=== PATIENT | female | born 1935 | race Caucasian/White ===

== ENCOUNTER 2021-05-18 22:58 | Inpatient (IN) | payer OTHER ==
[2021-05-19 00:20] LABS: HEMATOCRIT 33.2 % (32.4-45.2); MCH 30.7 pg (25.7-33.7); MCHC 33.2 g/dl (32.0-36.0); MEAN CELL VOLUME 92.6 fl (80-96); MEAN PLT VOLUME 7.1 fl (7.5-11.1); PLATELET COUNT 660 10^3/uL (134-434); RBC 3.59 M/mm3 (3.60-5.2); RDW 14.7 % (11.6-15.6); WHITE BLOOD COUNT 9.6 K/mm3 (4.0-10.0)
[2021-05-19 00:45] LABS: CHLORIDE 104 mmol/L (98-107); SODIUM 139 mmol/L (136-145)
[2021-05-19 00:48] LABS: ALBUMIN 2.6 g/dl (3.4-5.0); ANION GAP 6 MMOL/L (8-16); BLOOD UREA NITROGEN 9.8 mg/dL (7-18); CO2 29 mmol/L (21-32); GLUCOSE,RANDOM 193 mg/dL (74-106)
[2021-05-19 00:51] LABS: CREATININE 0.6 mg/dL (0.55-1.3); SGOT/AST 32 U/L (15-37); SGPT/ALT 24 U/L (13-61)
[2021-05-19 00:53] LABS: BILIRUBIN,TOTAL 0.4 mg/dL (0.2-1); TOT PROT 7.4 g/dl (6.4-8.2)
[2021-05-19 00:54] LABS: ALK PHOS 74 U/L (45-117)
[2021-05-19 01:01] LABS: INR 1.18 (0.83-1.09); PROTHROMBIN TIME (PATIENT) 14.3 SEC (9.7-13.0)
[2021-05-19 01:04] LABS: ACTIVATED PTT 34.7 SECONDS (25.2-36.5)
[2021-05-19 02:41] LABS: ANISOCYTOSIS 1+; MACROCYTOSIS 0; PLATELET ESTIMATE INCREASED; ROULEAU 3+
[2021-05-19] MEDS ORDERED: PIPERACILLIN/TAZOB 3.375 GM 3.375 GM in DEXTROSE 5%-WATER - 50 ML IVPB ONE (03:13)
[2021-05-19] MEDS ORDERED: VANCOMYCIN 1 GM in D5W (PRE-DOCKED) 1,000 MG/250 ML IVPB ONE (03:13)
[2021-05-19] MEDS ORDERED: PIPERACILLIN/TAZOB 3.375 GM 3.375 GM/50 ML BAG IVPB ONE (03:30)
[2021-05-19] MEDS ORDERED: VANCOMYCIN 1 GRAM (PRE-DOCKED) 1,000 MG/250 ML BAG IVPB ONE (03:30)
[2021-05-19] MEDS ORDERED: ONDANSETRON 4 MG TABLET PO PRN (12:17)
[2021-05-19] MEDS ORDERED: ACETAMINOPHEN 325 MG TABLET (FP) PO PRN (12:17)
[2021-05-19] MEDS ORDERED: POLYETHYLENE GLYCOL (HEALTHYLAX) 3350 17 GM PACKET PO PRN (12:35)
[2021-05-19] MEDS: MIRTAZAPINE 15 MG TABLET (FP) PO SCH (22:11)
[2021-05-20] MEDS ORDERED: BISACODYL 5 MG TABLET.DR (FP) PO SCH (10:00)
[2021-05-20] MEDS ORDERED: POLYETHYLENE GLYCOL (HEALTHYLAX) 3350 17 GM PACKET PO SCH (10:00)
[2021-05-20] MEDS: MIRTAZAPINE 15 MG TABLET (FP) PO SCH (22:46)
[2021-05-20] MEDS: ATORVASTATIN CA 40 MG TABLET (FP) PO SCH (22:46)
[2021-05-21] MEDS: MIRTAZAPINE 15 MG TABLET (FP) PO SCH (21:23)
[2021-05-21] MEDS: ATORVASTATIN CA 40 MG TABLET (FP) PO SCH (21:23)
[2021-05-22] MEDS: ATORVASTATIN CA 40 MG TABLET (FP) PO SCH (22:35)
[2021-05-22] MEDS: MIRTAZAPINE 15 MG TABLET (FP) PO SCH (22:35)
[2021-05-23] MEDS ORDERED: LIDOCAINE HCL 2% JELLY 10 ML CARTRIDGE TP ONE (21:00)
[2021-05-24] MEDS: MIRTAZAPINE 15 MG TABLET (FP) PO SCH ×2 (00:07→23:18)
[2021-05-24] MEDS: ATORVASTATIN CA 40 MG TABLET (FP) PO SCH ×2 (00:07→23:18)
[2021-05-24 08:42] LABS: HEMATOCRIT 35.9 % (32.4-45.2); HEMOGLOBIN 11.9 GM/dL (10.7-15.3); RBC 3.83 M/mm3 (3.60-5.2); WHITE BLOOD COUNT 7.6 K/mm3 (4.0-10.0)
[2021-05-24 08:43] LABS: GLUCOSE,RANDOM 110 mg/dL (74-106); LYMPH % 11.2 % (8-40); MEAN CELL VOLUME 93.9 fl (80-96); MEAN PLT VOLUME 7.5 fl (7.5-11.1); MONO % 9.4 % (3.8-10.2); NEUT % 75.9 % (42.8-82.8); PLATELET COUNT 601 10^3/uL (134-434); RDW 14.6 % (11.6-15.6)
[2021-05-24 08:44] LABS: BASO % 0.7 % (0-2.0); BLOOD UREA NITROGEN 12.5 mg/dL (7-18); EOS % 2.8 % (0-4.5)
[2021-05-24 08:45] LABS: CALCIUM 9.1 mg/dL (8.5-10.1); CHLORIDE 101 mmol/L (98-107); CO2 32 mmol/L (21-32); CREATININE 0.5 mg/dL (0.55-1.3); SODIUM 138 mmol/L (136-145)
[2021-05-24 08:46] LABS: ALBUMIN 0.4 g/dl (3.4-5.0); ALK PHOS 66 U/L (45-117); BILIRUBIN,TOTAL 0.4 mg/dL (0.2-1); SGOT/AST 16 U/L (15-37); SGPT/ALT 24 U/L (13-61); TOT PROT 6.9 g/dl (6.4-8.2)
[2021-05-25 10:14] LABS: ARTERIAL BLD GAS O2 SATURATION 95.9 % (95-98); ARTERIAL BLOOD GAS BASE EXCESS 5.5 mmol/L (-2-2); ARTERIAL BLOOD GAS PO2 81.5 mmHg (80-100); ARTERIAL BLOOD GAS pH 7.405 (7.350-7.450)
[2021-05-25 10:15] LABS: ALLENS TEST POSITIVE
[2021-05-25 16:22] VITALS: BMI 26.6
[2021-05-25] MEDS: ATORVASTATIN CA 40 MG TABLET (FP) PO SCH (21:47)
[2021-05-25] MEDS: MIRTAZAPINE 15 MG TABLET (FP) PO SCH (21:47)
[2021-05-26 09:50] VITALS: TEMP 98.8
[2021-05-26 20:30] VITALS: BP 137/75; PULSE 82
== END 2021-05-26 20:31 | DRG 180 ==
LOC: JER 22:58 → JERBED 05-19 01:33 → J7W 05-19 12:25
PROVIDERS: ADMIT Internal Medicine; ATTEND Internal Medicine
PROC: 0W9B30Z Drainage of Left Pleural Cavity with Drainage Device, Percutaneous Approach (ICD-10-PCS; principal; 2021-05-25)
DX: C34.92 Malignant neoplasm of unspecified part of left bronchus or lung (principal); J96.01 Acute respiratory failure with hypoxia; S22.080A Wedge compression fracture of T11-T12 vertebra, initial encounter for closed fracture; J91.0 Malignant pleural effusion; J98.11 Atelectasis; I25.10 Atherosclerotic heart disease of native coronary artery without angina pectoris; K21.9 Gastro-esophageal reflux disease without esophagitis; D64.9 Anemia, unspecified; F20.9 Schizophrenia, unspecified; E78.5 Hyperlipidemia, unspecified; F03.90 Unspecified dementia, unspecified severity, without behavioral disturbance, psychotic disturbance, mood disturbance, and anxiety; M81.0 Age-related osteoporosis without current pathological fracture; E66.9 Obesity, unspecified; Z68.26 Body mass index [BMI] 26.0-26.9, adult; Z66 Do not resuscitate; Z85.048 Personal history of other malignant neoplasm of rectum, rectosigmoid junction, and anus
CPT/HCPCS: 32550; 36415; 36600; 71045-TC-FY; 71046-TC-FY; 71250-TC; 76775-TC; 76856-TC; 80053; 82550; 82803; 84484; 85025; 85610; 85730; 87070; 87075; 87205; 87804; 93005; 93010; 99291; 99292; C9803; U0003; U0005